=== PATIENT | male | born 1970 | race Caucasian/White ===

== ENCOUNTER → 2023-11-17 | Outpatient (CLI) | payer OTHER | END | disposition home or self-care (01) | LOC: RESCLI 15:35 | PROVIDERS: ATTEND Internal Medicine | DX: E11.9 Type 2 diabetes mellitus without complications (principal); E78.5 Hyperlipidemia, unspecified; F41.9 Anxiety disorder, unspecified; Z79.84 Long term (current) use of oral hypoglycemic drugs; Z82.49 Family history of ischemic heart disease and other diseases of the circulatory system; Z87.891 Personal history of nicotine dependence; Z79.899 Other long term (current) drug therapy ==